=== PATIENT | male | born 1960 | race Caucasian/White ===

== ENCOUNTER 2024-10-06 08:23 | Emergency (ER) | payer OTHER, SELFPAY ==
--- NOTE | ~2024-10-06 | US_ITS ---
EXAMINATION: US TRIPLEX LOWER EXTREMITY, RIGHT CLINICAL INFORMATION: Right leg edema. Question DVT. COMPARISON: None available. TECHNIQUE: Color-flow triplex imaging with spectral analysis and compression Doppler were performed on the right lower extremity. FINDINGS: Respiratory variation, normal compression and augmented flow are noted throughout the right lower extremity. The visualized common femoral vein, superficial femoral vein, profunda femoral vein, popliteal vein and midcalf peroneal and posterior tibial venous segments show no evidence of deep venous thrombosis. There is no Miner's cyst. US/US venous duplex LE RT IMPRESSION: No evidence of deep venous thrombosis involving the right lower extremity. Electronically signed by: Naresh Banuelos MD 10/06/2024 09:21 AM EST
[2024-10-06 08:27] VITALS: BP 145/99; PULSE 76; RESP 18; TEMP 36.7; O2SAT 96; BMI 29.0
--- NOTE | 2024-10-06 08:50 | ED_ITS ---
HPI - Extremity Injury (Lower) General Chief Complaint: Extremity Injury, Lower Stated Complaint: R calf pain Time Seen by Provider: 10/06/24 08:42 Source: patient Mode of arrival: ambulatory Limitations: no limitations History of Present Illness ED Provider: Dr. Jordan St HPI Narrative: 64-year-old male with a history hyperlipidemia who presents emergency department for evaluation of right calf pain. The patient states that he was in [place] and flew back to [place] on 09/29/2024 ( 1 week prior ). He states that they were on the plane for an hour before takeoff in the flight was a proximally 4 hours. He states he did not walk around much 1 who was on the plane. Patient states that on Thursday morning ( 2 days prior ) he woke up with right calf pain. He states that the calf pain has been constant in his gotten worse. Describes it as a cramping sensation. He was not noticed any increased swelling in the right leg compared to the left. He denied fever, chills, cough, chest pain, shortness of breath, dyspnea on exertion. Patient states that he did not have any injury to explain his calf pain. Related Data Allergies Allergy/AdvReac Type Severity Reaction Status Date / Time No Known Allergies Allergy Verified 10/06/24 08:28 Review of Systems Review of Systems: Yes all other systems are reviewed and are negative [facility] Social History Social History Advance Directives: Yes Advance Directives Information Provided: No Advance Directives on File: No Do you have a plan to hurt others: No Plan Physical Exam Vital Signs: Vital Signs: Last Vital Signs Temp 98.1 F 10/06/24 08:27 Pulse 76 10/06/24 08:27 Resp 18 10/06/24 08:27 BP 145/99 H 10/06/24 08:27 Pulse Ox 96 10/06/24 08:27 O2 Del Method Room Air 10/06/24 08:27 BMI result Body Mass Index 29.0 Vital signs were normal Except for an elevated blood pressure of 145/99 Exam: General: Awake, alert in no distress Extremities: no deformities,Dry skin with no erythema or increased warmth, positive Homans sign on the right negative on the left, the patient does have tenderness palpation of his right posterior calf compared to the left, extremities neurovascular intact Psych: Pleasant, cooperative Medical Decision Making Medical Decision Making MDM Narrative: 64-year-old male with a history hyperlipidemia who presents emergency department for evaluation of right calf pain X2 days, patient recently returned from [place] 1 week prior when he has been 5 hours on the plane. Patient had no acute injury that he was aware of. This is 1st episode of this type of pain. He had no concerning systemic symptoms such as fever, chills, cough, chest pain, shortness of breath. vital signs were unremarkable. Physical examination did reveal positive Homans on the right hand calf tenderness with no asymmetry. Differential diagnosis: Includes but is not limited to Calf DVT, thigh DVT, musculoskeletal strain Following evaluation was ordered: triplex ultrasound right lower extremity Patient was initially treated with the following: aspirin 162 mg orally, Tylenol 975 mg orally Course: patient's duplex ultrasound of the right lower extremity was negative for DVT, no Miner's cyst was seen. I did tell the patient that this is reassuring however I did tell him that a calf DVT can sometimes be missed on the initial ultrasound and that he will need a repeat ultrasound in 4 days to make sure that he does not have a small clot that then propagates do his thigh. patient was started on aspirin 160 mg daily and Tylenol 1000 mg every 6 hours as needed for pain. He was given signs and symptoms of worsening blood clot and pulmonary embolism and advised to return to the emergency department according the nearest emergency department if you developed these symptoms. I did emphasize the importance of getting a repeat ultrasound in 4 days even if his symptoms have resolved completely. Admission/Observation Consideration of admission/observation: Escalation of care including admission/observation considered ( Yes) Radiology Impression Discussion of test interpretation with radiology: I have reviewed the radiologist's reading. Radiologist Impression: EXAMINATION: US TRIPLEX LOWER EXTREMITY, RIGHT CLINICAL INFORMATION: Right leg edema. Question DVT. COMPARISON: None available. TECHNIQUE: Color-flow triplex imaging with spectral analysis and compression Doppler were performed on the right lower extremity. FINDINGS: Respiratory variation, normal compression and augmented flow are noted throughout the right lower extremity. The visualized common femoral vein, superficial femoral vein, profunda femoral vein, popliteal vein and midcalf peroneal and posterior tibial venous segments show no evidence of deep venous thrombosis. There is no Miner's cyst. US/US venous duplex LE RT IMPRESSION: No evidence of deep venous thrombosis involving the right lower extremity. Electronically signed by: Naresh Banuelos MD 10/06/2024 09:21 AM EST Discharge Plan Discharge Clinical Impression: Right calf pain Patient Disposition: Home, Self-Care Additional Instructions: your exam did reveal tenderness palpation of your calf but no obvious swelling to your right calf. You had a triplex ultrasound of your right lower extremity and there was no blood clot seen at this time which is reassuring. However, given your history of being on a plane for 5 hours, you are at high risk for developing a blood clot in your calf that me propagate (grow) and spread into your thigh even though we did not see a blood clot today. You will need to get a repeat ultrasound in 4 days in [place] to make sure that there is not clot propagation. Take 2 baby aspirin ( 81 mg) daily until you were told that you do not have a blood clot in your right leg. Take Tylenol (acetaminophen) 500 mg pills, 2 pills every 6 hours as needed for pain or fever. I want you to return to the emergency department or go to the nearest emergency department in [place] if you develop chest pain, shortness of breath, fever, cough, increased pain or swelling in your right leg. These are signs of blood clots that break off and go to your lungs. (Pulmonary embolism) Please return to the emergency department if your symptoms get worse or if you develop any symptoms that are concerning to you. you can show your ultrasound report to the providers that are caring for you in [place]. EXAMINATION: US TRIPLEX LOWER EXTREMITY, RIGHT CLINICAL INFORMATION: Right leg edema. Question DVT. COMPARISON: None available. TECHNIQUE: Color-flow triplex imaging with spectral analysis and compression Doppler were performed on the right lower extremity. FINDINGS: Respiratory variation, normal compression and augmented flow are noted throughout the right lower extremity. The visualized common femoral vein, superficial femoral vein, profunda femoral vein, popliteal vein and midcalf peroneal and posterior tibial venous segments show no evidence of deep venous thrombosis. There is no Miner's cyst. US/US venous duplex LE RT IMPRESSION: No evidence of deep venous thrombosis involving the right lower extremity. Electronically signed by: Naresh Banuelos MD 10/06/2024 09:21 AM EST Print Language: [place]
--- NOTE | 2024-10-06 09:27 | PC.NURSE ---
US being performed at bedside
--- NOTE | 2024-10-06 09:43 | PC.NURSE ---
patient a&ox3, c/o 05/18 RLE pain specifically with ambulation, pt states the area doesnt hurt while at rest. US has been performed, pt aware it will take some time for the US to result.
[2024-10-06] MEDS: Acetaminophen 325 MG TABLET 975 MG PO (10:46)
[2024-10-06] MEDS: Aspirin 81 MG TAB.CHEW 162 MG PO (10:46)
[2024-10-06 10:52] VITALS: BP 150/98; PULSE 16; RESP 61; TEMP 36.2; O2SAT 99
== END 2024-10-06 10:53 | disposition home or self-care (01) ==
PROVIDERS: Emergency Provider Emergency Medicine Emergency Medical Services; PCP Internal Medicine
DX: M79.661 Pain in right lower leg (principal)
CPT/HCPCS: 93971; 99283; 99284